=== PATIENT | male | born 1985 | race Caucasian/White ===

== ENCOUNTER 2024-03-09 21:32 | Observation (INO) | payer OTHER ==
--- OUTSIDE RECORDS SUMMARY | 2024-03-09 21:34 | XMS REPORT | Continuity of Care Document ---
Author Name Unknown Address [address] [facility]. [address] [place] [address] [facility] thconnect Address [address] [facility] [address] [place] [address] Care Team Providers Care Customer Program Manager Name Role Phone Pcp, Patient Does Not Have A Primary Care Physic tiffanie VINCE HAUSER Attending Clinician Unavailabl e Lab, [facility] Pob I Attending Clinician Unavailab le Pcp, Patient Does Not Have A Attending Clinician Amy Sandhu RN Attending Clinician Unavailable Diaz Antonio Attending Clinician [phone] Doctor Unassigned, [place] Attending Clinician U navailable DIAZ HOPE Attending Clinician Unavailable Ruth Nuno MD Attending Clinician [phone] RUTH NUNO Attending Clinician Unavailable Payers Payer Name Policy Type Policy Number Effective Date Expirati on Date Source [facility] [id number] 2018 00:00:00 Problems Condition Name Condition Details Condition Category Status Onset Date Resolution Date Last Treatment Date Treating Clinician Comments Source COVID-19 COVID-19 Disease Active 09-18 00:00: 00 [facility] Allergies, Adverse Reactions, Alerts Allergy Name Allergy Type Status Severity Reaction(s) Onset Date Inactive Date Treating Clinician Comments Source NO KNOWN ALLERGIE S Drug Class Active [facility] Social History Social Habit Start Date Stop Date Quantity Comments Source Sexual orientation U [facility] Exposure to SARS-CoV-2 (event) 2019-08-20 00:00:00 2019-09-19 14:18:00 Not sure [facility] Sex Assigned At 1985 00:00:00 1985 00:00:00 [facility] Smoking Status Start Date Stop Date Source Tobacco smoking consumption unknown [facility] Encounters Start Date/Time End Date/Time Encounter Type Admission Type Attending [facility] Facility Care Department Encounter ID Source 2019-09-22 16:20:00 2019-09-22 16:20:00 Outpatient VINCE MACHADO [facility] [id number] [facility] 2019-09-22 00:00:00 2019-09-22 00:00:00 Nurse Triage Lab, [facility] [id number] 350.1.13.10 [id number] [id number] 2019-09-22 00:00:00 2019-09-22 00:00:00 Nurse Triage Lab, [facility] P[facility] I [facility] 1.2.840.114 350.1.13.10 4.2.7.2.686 [id number] [facility] 2019-09-20 00:00:00 2019-09-20 00:00:00 Telephone Pcp, Patient Does Not Have A [facility] [id number] 350.1.13.10 [id number] [id number] 2019-09-20 00:00:00 2019-09-20 00:00:00 Letter (Out) Amy Sandhu [facility] 1.2.840.114 350.1.13.10 4.2.7.2.686 [id number] 2019-09-20 00:00:00 2019-09-20 00:00:00 Telephone Pcp, Patient Does Not Have A [facility] 1.2.840.114 350.1.13.10 4.2.7.2.686 [id number] [facility] 2019-09-20 00:00:00 2019-09-20 00:00:00 Letter (Out) Amy Sandhu [facility] [id number] 350.1.13.10 4.2.7.2.686 [id number] [facility] 2019-09-19 14:06:34 2019-09-19 14:26:34 Laboratory Only Lab, [facility] Pob [facility] 1.840.114 350.1.13.10 4.2.7.2.686 [id number] 2019-09-19 14:06:34 2019-09-19 14:26:34 Laboratory Only Lab, [facility] 1.840.114 350.1.13.10 4.2.7.2.686 [id number] [facility] 2019-09-19 14:20:00 2019-09-19 14:20:00 Outpatient R [facility] [id number] [facility] 2019-09-15 00:00:00 2019-09-15 00:00:00 Patient Secure Msg Doctor Unassigned, [place] [facility] 1.840.114 350.1.13.10 4.2.7.2.686 [id number] [facility] 2019-09-14 11:37:06 2019-09-14 11:57:06 Laboratory Only Lab, [facility] Pob [facility] 1.840.114 350.1.13.10 4.2.7.2.686 [id number] 2019-09-14 11:37:06 2019-09-14 11:57:06 Laboratory Only Lab, [facility] 1.840.114 350.1.13.10 4.2.7.2.686 [id number] [facility] 2019-09-14 11:40:00 2019-09-14 11:40:00 Outpatient DIAZ FRANKEL [facility] [id number] [facility] 2019-08-31 00:00:00 2019-08-31 00:00:00 Telephone Ruth Nuno [facility] [id number] 350.1.13.10 4.2.7.2.686 [id number] 2019-08-31 00:00:00 2019-08-31 00:00:00 Telephone Ruth Nuno [facility] 1.2.840.114 350.1.13.10 4.2.7.2.686 [id number] [facility] 2019-08-30 00:00:00 2019-08-30 00:00:00 Patient Secure Msg Doctor Unassigned, [place] [facility] 1.2.840.114 350.1.13.10 4.2.7.2.686 [id number] [facility] 2019-08-28 09:45:00 2019-08-28 09:45:00 Outpatient RUTH MOREAU [facility] [id number] [facility]
[2024-03-09] MEDS ORDERED: LORazepam 2 MG/ML VIAL ONE (22:16)
[2024-03-09] MEDS ORDERED: ASPIRIN 81 MG CHEWABLE TABLET ONE (22:17)
--- NOTE | 2024-03-09 22:37 | RAD REPORT ---
EXAMINATION: ONE VIEW CHEST XR CLINICAL INDICATION: Male, 38 years old.,CHEST PAIN TECHNIQUE: Frontal chest projection is submitted. Examination is limited by patient positioning and t echnique. COMPARISON: 12/15/2023 FINDINGS: The lungs are grossly clear although suboptimal inspiratory effort somewhat limits evaluation. No pn eumothorax or sizable effusion. The heart is normal in size. Mediastinal contours are unremarkable. IMPRESSION: No acute intrathoracic abnormalities.
[2024-03-09 22:55] LABS: Absolute Basophils 0.1 K/uL (0-0.5); Absolute Eosinophils 0.1 K/uL (0-0.5); Absolute Lymphocytes (CBC) 1.8 K/uL (0.7-4.9); Absolute Monocytes 1.1 K/uL (0.1-1.3); Absolute Neutrophil 8.8 K/uL (1.8-8.0); Basophils % 0.5 % (0-1.3); Eosinophils % 0.8 % (0-4.4); Hematocrit 40.5 % (39.6-49.0); Hemoglobin 13.8 g/dL (13.6-17.9); MCH 30.2 pg (27.0-35.0); MCV 88.8 fL (80-100); MPV 7.4 fL (7.6-11.3); Monocytes % 9.2 % (3.3-12.3); Neutrophils % 74.5 % (41.7-73.7); Platelets 480 thou/uL (152-406); RBC Red Blood Cell Count 4.57 M/uL (4.33-5.43); Red Cell Distribution Width 12.7 % (12.1-15.2)
[2024-03-09 23:28] LABS: PT Prothrombin Time 11.5 SECONDS (9.4-12.5); Protime INR 1.1
[2024-03-09 23:40] LABS: Anion Gap 11.8 mEq/L (5.0-15.0); BUN Blood Urea Nitrogen 16 mg/dL (7-18); Bicarbonate 21 mEq/L (21-32); Glomerular Filtration Rate 99 ml/min (=/>90); Glucose Level 171 mg/dL (74-106); Magnesium 1.8 mg/dL (1.6-2.4); Potassium 3.8 mEq/L (3.5-5.1); Sodium Level 134 mEq/L (136-145); Troponin High Sensitivity 6.4 pg/mL (<58.9)
[2024-03-09 23:53] LABS: NT PRO-BNP < 5 pg/mL (<125)
[2024-03-10 00:37] LABS: Specific Gravity 1.012 (1.005-1.030); Sqamous Epithelial None Seen /HPF (None Seen); Urine Bacteria None Seen /HPF (<20); Urine Bilirubin NEGATIVE (Negative); Urine Blood Trace (Negative); Urine Clarity Clear (Clear); Urine Color Colorless (Yellow); Urine Culture Reflex Order NOT NEEDED; Urine Glucose NEGATIVE (Negative); Urine Ketones NEGATIVE (Negative); Urine Microscopic Reflex YN ORDER UMIC; Urine Mucus Slight /HPF (None Seen); Urine Nitrite NEGATIVE (Negative); Urine Protein NEGATIVE (Negative); Urine RBC <5 /HPF (None Seen); Urine Urobilinogen Normal (Normal); Urine WBC <5 /HPF (<5)
--- NOTE | 2024-03-10 01:17 | ER ---
Nurse's Notes [facility] Name: David Howard Age: 38 yrs Sex: Male : 1985 Arrival Date: 03/09/2024 Time: 21:32 Bed 17 Private MD: Diagnosis: Chest pain, unspecified;Diabetes mellitus due to underlying condition with hyperglycemia Presentation: 03/09 21:49 Chief complaint: Patient states: c/o CP x1 hour, states just a few minutes ago started al5 to having tingling in the L arm and L breast. states he took some benadryl to help sleep due to having an itchy throat. Coronavirus screen: At this time, the client does not indicate any symptoms associated with coronavirus-19. Ebola Screen: No symptoms or risks identified at this time. Initial Sepsis Screen: Does the patient meet any 2 criteria? No. Patient's initial sepsis screen is negative. Does the patient have a suspected source of infection? No. Patient's initial sepsis screen is negative. Risk Assessment: Do you want to hurt yourself or someone else? Patient reports no desire to harm self or others. Onset of symptoms was March 09, 2024. 21:49 Method Of Arrival: Ambulatory al5 21:49 Acuity: VIOLETTE 2 al5 Triage Assessment: 21:53 General: Appears in no apparent distress. Behavior is calm, cooperative. Pain: al5 Complains of pain in left breast Pain currently is 2 out of 10 on a pain scale. EENT: No signs and/or symptoms were reported regarding the EENT system. Neuro: Level of Consciousness is awake, alert, obeys commands, Oriented to person, place, time, situation. Cardiovascular: Reports chest pain, Patient's skin is warm and dry. Respiratory: Airway is patent Respiratory effort is even, unlabored, Respiratory pattern is regular, symmetrical. GI: No signs and/or symptoms were reported involving the gastrointestinal system. Abdomen is round non-distended, obese. : No signs and/or symptoms were reported regarding the genitourinary system. Derm: Skin is intact, is healthy with good turgor, Skin is pink, warm \T\ dry. normal. Musculoskeletal: No signs and/or symptoms reported regarding the musculoskeletal system. Historical: - Allergies: 21:51 No Known Allergies; al5 - PMHx: 21:51 Hypertensive disorder; Hypercholesterolemia; Diabetes mellitus; Anxiety; al5 - PSHx: 21:51 None; al5 - Immunization history:: Adult Immunizations up to date. - Infectious Disease History:: Denies. - Social history:: Smoking status: Patient denies any tobacco usage or history of. Screenin:30 [facility] ED Fall Risk Assessment (Adult) History of falling in the last 3 months, mt4 including since admission No falls in past 3 months (0 pts) Confusion or Disorientation No (0 pts) Intoxicated or Sedated No (0 pts) Impaired Gait No (0 pts) Mobility Assist Device Used No (0 pt) Altered Elimination Yes (1 pt) Score/Fall Risk Level 0 - 2 = Low Risk. Abuse screen: Denies injuries from another. Nutritional screening: No deficits noted. Tuberculosis screening: No symptoms or risk factors identified. Exposure risk/Travel Screening: None identified. Assessment: 23:30 General: Appears in no apparent distress. comfortable, obese, well groomed, Behavior is mt4 calm, cooperative, appropriate for age. 23:30 Pain: Complains of pain in chest Pain began 1 day ago. Is continuous. Neuro: Level of mt4 Consciousness is awake, alert, obeys commands, Oriented to person, place, time, situation, Appropriate for age Leather Toggler are equal bilaterally Moves all extremities. Gait is steady, Speech is normal, Facial symmetry appears normal. Cardiovascular: Capillary refill < 3 seconds Pulses. Respiratory: Airway is patent Respiratory effort is even, unlabored, Respiratory pattern is regular, symmetrical. GI: Abdomen is round non-distended, obese. : Denies burning with urination. Musculoskeletal: Capillary refill < 3 seconds, Range of motion: intact in all extremities. 03/10 00:14 Pain: Pain does not radiate. Pain began 1 day ago. mt4 00:19 Reassessment: Patient is alert, oriented x 3, equal unlabored respirations, skin mt4 warm/dry/pink. Patient states feeling better. Vital Signs: 03/09 21:49 BP 140 / 96; Pulse 87; Resp 18; Temp 98.1; Pulse Ox 100% on R/A; Weight 158.76 kg; al5 Height 5 ft. 11 in. ; Pain 2/10; 22:30 BP 122 / 77; Pulse 78; Resp 18; Pulse Ox 97% on R/A; mt4 01/24 00:00 BP 109 / 68; Pulse 71; Resp 16; Pulse Ox 96% on R/A; mt4 00:47 BP 113 / 60 LA (man/lg); Pulse 66; Resp 16; Pulse Ox 97% on R/A; mt4 00:47 BP 119 / 63 RA; Pulse 70 RA; mt4 02:00 BP 126 / 73; Pulse 72; Resp 16; Pulse Ox 94% on R/A; mt4 03/09 21:49 Body Mass Index 48.82 (158.76 kg, 180.34 cm) al5 03/09 21:49 Pain Scale: Adult al5 Bellona Coma Score: 03/09 23:30 Eye Response: spontaneous(4). Motor Response: obeys commands(6). Verbal Response: mt4 oriented(5). Total: 15. ED Course: 21:32 Patient arrived in ED. jj6 21:33 Gonsalo Ewing PA is PHCP. cp 21:34 Rajesh Heller MD is Attending Physician. cp 21:51 Triage completed. al5 21:54 Arm band placed on right wrist. Patient placed in waiting room, in view of staff al5 members, on pulse oximetry. EKG completed in triage. Results shown to MD. 22:13 Alanis Menendez, RN is Primary Nurse. mt4 22:28 XRAY Chest (1 view) In Process Unspecified. EDMS 23:30 Patient has correct armband on for positive identification. Bed in low position. Call mt4 light in reach. Side rails up X 1. Adult w/ patient. Provided Education on: labs and meds . Client placed on continuous cardiac and pulse oximetry monitoring. NIBP monitoring applied. potline monitor on. Pulse ox on. Door closed. Lights dimmed. Warm blanket given. Pillow given. Verbal reassurance given. Assisted with urinal. 23:30 No provider procedures requiring assistance completed. Inserted saline lock: 20 gauge mt4 in right antecubital area, using aseptic technique. Blood collected. Flushed with 10 mL NS. Patient maintains SpO2 saturation greater than 95% on room air. 03/10 01:15 Aleksander Medina MD is Hospitalizing Provider. cp Administered Medications: 03/09 22:30 Drug: Ativan IVP 1 mg IVP once Route: IVP; Site: right antecubital; mt4 03/10 00:49 Follow up: Response: No adverse reaction mt4 03/09 23:09 Drug: Aspirin PO Chewable Tablet 324 mg PO once; 81 mg tablets x 4 Route: PO; mt4 03/10 00:49 Follow up: Response: No adverse reaction mt4 Medication: 03/09 23:30 VIS not applicable for this client. mt4 Outcome: 03/10 01:16 Decision to Hospitalize by Provider. cp 09:39 Patient left the ED. hb Signatures: Dispatcher [employer] EDMS Gonsalo Ewing PA PA cp Esperanza Longoria RN RN Ifeoma Peñaloza jj6 Alanis Menendez RN RN mt4 Phyllis Kuo RN RN al5 Corrections: (The following items were deleted from the chart) 03/09 21:53 21:49 Chief complaint: Patient states: c/o CP x1 hour, states just a few minutes ago al5 started to having tingling in the L arm and L breast al5
--- NOTE | 2024-03-10 01:17 | EDPHYS ---
Physician Documentation [facility] Name: David Howard Age: 38 yrs Sex: Male : 1985 Arrival Date: 03/09/2024 Time: 21:32 Bed 17 Private MD: ED Physician Rajesh Heller HPI: 03/09 21:55 This 38 yrs old Male presents to ER via Ambulatory with complaints of Chest Pain, High cp Blood Pressure. 21:55 The patient or guardian reports chest pain that is located primarily in the anterior cp chest wall, left. Associated signs and symptoms: Pertinent positives: tingling of left arm and hands, Pertinent negatives: abdominal pain, diaphoresis, lower extremity pain, lower extremity swelling, near syncope, shortness of breath, syncope, vomiting. The chest pain is described as a pressure. Duration: The patient or guardian reports a single episode, that is still ongoing. Historical: - Allergies: 21:51 No Known Allergies; al5 - PMHx: 21:51 Hypertensive disorder; Hypercholesterolemia; Diabetes mellitus; Anxiety; al5 - PSHx: 21:51 None; al5 - Immunization history:: Adult Immunizations up to date. - Infectious Disease History:: Denies. - Social history:: Smoking status: Patient denies any tobacco usage or history of. ROS: 22:00 Constitutional: Negative for body aches, chills, fever, poor PO intake, cp 22:00 Cardiovascular: Positive for chest pain, Negative for edema, palpitations, cp 22:00 Respiratory: Negative for cough, shortness of breath, wheezing, 22:00 Abdomen/GI: Negative for abdominal pain, vomiting, diarrhea, constipation, 22:00 Eyes: Negative for injury, pain, redness, and discharge, cp 22:00 ENT: Negative for drainage from ear(s), ear pain, sore throat, difficulty swallowing, difficulty handling secretions, 22:00 Neck: Negative for pain with movement, pain at rest, stiffness, cp 22:00 Neuro: Negative for altered mental status, weakness, 22:00 All other systems are negative, Exam: 21:56 ECG was reviewed by the Attending Physician. cp 22:05 Constitutional: The patient appears in no acute distress, alert, awake, cp non-diaphoretic, non-toxic, well developed, well nourished, anxious, obese, 22:05 Head/Face: Normocephalic, atraumatic. cp 22:05 Eyes: Periorbital structures: appear normal, Conjunctiva: normal, no exudate, no injection, Sclera: no appreciated abnormality, Lids and lashes: appear normal, bilaterally, 22:05 ENT: External ear(s): are unremarkable, Nose: is normal, Mouth: Lips: moist, Oral mucosa: moist, Posterior pharynx: Airway: no evidence of obstruction, patent, 22:05 Neck: ROM/movement: is normal, is supple, without pain, no range of motions limitations, 22:05 Chest/axilla: Inspection: normal, Palpation: is normal, no crepitus, no tenderness, 22:05 Cardiovascular: Rate: normal, Rhythm: regular, Edema: is not appreciated, JVD: is not appreciated, 22:05 Respiratory: the patient does not display signs of respiratory distress, Respirations: normal, no use of accessory muscles, no retractions, labored breathing, is not present, Breath sounds: are clear throughout, no decreased breath sounds, no stridor, no wheezing, 22:05 Abdomen/GI: Inspection: obese Palpation: abdomen is soft and non-tender, in all quadrants, 22:05 Back: pain, is absent, ROM is normal, 22:05 Neuro: Orientation: to person, place \T\ time. Mentation: is normal, Cerebellar function: cp is grossly normal, Motor: moves all fours, strength is normal, Sensation: tingling, that is mild, of the right hand, left hand and left arm, Vital Signs: 21:49 BP 140 / 96; Pulse 87; Resp 18; Temp 98.1; Pulse Ox 100% on R/A; Weight 158.76 kg; al5 Height 5 ft. 11 in. ; Pain 2/10; 22:30 BP 122 / 77; Pulse 78; Resp 18; Pulse Ox 97% on R/A; mt4 03/10 00:00 BP 109 / 68; Pulse 71; Resp 16; Pulse Ox 96% on R/A; mt4 00:47 BP 113 / 60 LA (man/lg); Pulse 66; Resp 16; Pulse Ox 97% on R/A; mt4 00:47 BP 119 / 63 RA; Pulse 70 RA; mt4 02:00 BP 126 / 73; Pulse 72; Resp 16; Pulse Ox 94% on R/A; mt4 03/09 21:49 Body Mass Index 48.82 (158.76 kg, 180.34 cm) al5 03/09 21:49 Pain Scale: Adult al5 Roc Coma Score: 03/09 23:30 Eye Response: spontaneous(4). Motor Response: obeys commands(6). Verbal Response: mt4 oriented(5). Total: 15. MDM: 22:00 Differential diagnosis: abnormal EKG, acute myocardial infarction, anxiety, pleurisy, cp pneumonia, pneumothorax, pulmonary embolus, stable angina, thoracic aortic disection, unstable angina. 03/10 00:39 HEART Score: History: Moderately Suspicious (1), ECG: Normal (0), Age: < or = 45 years (0), Risk Factors: > or = 3 Risk factors for atherosclerotic disease (2), [Hypercholesterolemia] [Hypertension] [DM] [Obesity] Troponin: < or = 1 x Normal Limit (0). 01:16 Medical Screening Exam initiated 01:16 Data reviewed: vital signs, nurses notes, lab test result(s), EKG, radiologic studies, plain films, and as a result, I will admit patient. 01:16 I considered the following discharge prescriptions or medication management in the emergency department Medications were administered in the Emergency Department. See MAR. Independent interpretation of the following test(s) in the Emergency Department EKG: See my EKG interpretation above. Test considered but Not performed: CT: chest. Care significantly affected by the following chronic conditions: Diabetes, Hypertension, Obesity. Counseling: I had a detailed discussion with the patient and/or guardian regarding the historical points, exam findings, and any diagnostic results supporting the discharge/admit diagnosis, lab results, radiology results. Response to treatment: the patient's symptoms have markedly improved after treatment. 03/09 21:49 Order name: Basic Metabolic Panel; Complete Time: 00:35 03/10 00:35 Interpretation: Normal except: NA 134; GLUC 171. 03/09 21:49 Order name: CBC with Diff; Complete Time: 23:35 03/09 23:35 Interpretation: Normal except: WBC 11.90; PLT 480; MPV 7.4; YEHUDA% 74.5; LYM% 15.0; NEUT cp A 8.8. 03/09 21:49 Order name: Magnesium; Complete Time: 00:35 cp 03/09 21:49 Order name: NT PRO-BNP; Complete Time: 00:35 cp 03/10 00:35 Interpretation: Reviewed. cp 03/09 21:49 Order name: PT-INR; Complete Time: 23:35 cp 03/09 21:49 Order name: Troponin HS; Complete Time: 00:35 cp 03/09 22:03 Order name: UDS cp 03/09 23:26 Order name: Urinalysis w/ reflexes; Complete Time: 00:38 cp 03/10 00:38 Interpretation: Normal except: UBLD Trace. cp 03/10 02:47 Order name: Urinalysis w/ reflexes EDMS 03/10 02:47 Order name: CBC with Automated Diff EDMS 03/10 02:47 Order name: CBC with Automated Diff EDMS 03/10 02:47 Order name: Comprehensive Metabolic Panel EDMS 03/10 02:47 Order name: Comprehensive Metabolic Panel EDMS 03/10 02:47 Order name: Troponin High Sensitivity EDMS 03/10 02:47 Order name: Troponin High Sensitivity EDMS 03/10 02:47 Order name: Troponin High Sensitivity EDMS 03/10 02:47 Order name: Troponin High Sensitivity EDMS 03/10 04:03 Order name: Glucose, Ancillary Testing EDMS 03/09 21:49 Order name: XRAY Chest (1 view); Complete Time: 23:35 cp 03/10 06:56 Order name: CT EDMS 03/09 21:49 Order name: EKG; Complete Time: 21:50 cp 03/09 21:49 Order name: Cardiac monitoring; Complete Time: 00:49 cp 03/09 21:49 Order name: EKG - Nurse/Tech; Complete Time: 21:59 cp 03/09 21:49 Order name: IV Saline Lock; Complete Time: 00:49 cp 03/09 21:49 Order name: Labs collected and sent; Complete Time: 00:49 cp 03/09 21:49 Order name: O2 Per Protocol; Complete Time: 00:49 cp 03/09 21:49 Order name: O2 Sat Monitoring; Complete Time: 00:50 cp 03/09 23:36 Order name: Blood Pressure Recheck: bilateral upper extremity; Complete Time: 00:49 cp EC/23 21:56 Rate is 88 beats/min. Rhythm is regular. AL interval is normal. QRS interval is normal. cp QT interval is normal. T waves are Inverted in leads III, aVR. Interpreted by me. Reviewed by me. Administered Medications: 22:30 Drug: Ativan IVP 1 mg IVP once Route: IVP; Site: right antecubital; mt4 03/10 00:49 Follow up: Response: No adverse reaction mt4 03/09 23:09 Drug: Aspirin PO Chewable Tablet 324 mg PO once; 81 mg tablets x 4 Route: PO; mt4 03/10 00:49 Follow up: Response: No adverse reaction mt4 Disposition Summary: 03/10/24 01:16 Hospitalization Ordered Notes: Hospitalization Status: Observation cp Provider: Aleksander Medina cp Condition: Stable cp Problem: new cp Symptoms: have improved cp Bed/Room Type: Standard cp Location: Telemetry/MedSurg (observation)(03/10/24 08:01) eb Room Assignment: [facility](03/10/24 08:01) Diagnosis - Chest pain, unspecified cp - Diabetes mellitus due to underlying condition with hyperglycemia cp Forms: - Medication Reconciliation Form cp - SBAR form cp - Leadership Thank You Letter cp Addendum: 03/12/2024 07:08 Co-signature as Attending Physician, Rajesh Heller MD I reviewed the patient's care r n provided by the Advanced Practice Provider and agree with the diagnosis and treatment plan. Signatures: Dispatcher [employer] EDRajesh Daniels MD MD rn Page, Corey, PA PA cp Amaya Hendrickson Vanessa RN RN vc1 Alanis Menendez RN RN mt4 Phyllis Kuo RN RN al5 Corrections: (The following items were deleted from the chart) 03/10 02:09 01:16 Telemetry/MedSurg (observation) cp vc1 02:09 01:16 cp vc1 08:01 02:09 [facility] ER HOLD vc1 eb 08:01 02:09 ERHOLD- vc1 eb
[2024-03-10 01:20] LABS: Barbiturates NEGATIVE (NEGATIVE); Benzodiazepines NEGATIVE (NEGATIVE); Cocaine NEGATIVE (NEGATIVE); METHAMPHETAM NEGATIVE (NEGATIVE); Methadone NEGATIVE (NEGATIVE); Opiates NEGATIVE (NEGATIVE); Phencyclidine NEGATIVE (NEGATIVE); THC Cannibis NEGATIVE (NEGATIVE)
[2024-03-10] MEDS ORDERED: ACETAMINOPHEN 325 MG TABLET PO PRN (02:42)
[2024-03-10] MEDS ORDERED: ONDANSETRON 4 MG/2 ML VIAL IV PRN (02:42)
--- NOTE | 2024-03-10 02:42 | P.HP ---
Certification for Inpatient Patient admitted to: Observation With expected LOS: <2 Midnights Practitioner: I am a practitioner with admitting privileges, knowledge of patient current condition, hospital course, and medical plan of care. Services: Services provided to patient in accordance with Admission requirements found in Title 42 Section 412.3 of the Code of Federal Regulations Patient History Date of Service: 03/10/24 Reason for admission: Chest Pain History of Present Illness: 38 yrs old Male with a past medical history of hypertension, hyperlipidemia, diabetes, anxiety who was brought to ER with chest pain and also numbness of the left side of the upper extremity. Pain is located in anterior chest wall radiating to the left side associated with tingling of the left arm and hands. Denies any headache. No nausea vomiting or diarrhea. No fever or chills. Denies any cough. Patient also complains of pressure-like feeling in the chest. Patient was assessed in the ER was admitted for further management of chest pain rule out ACS and to rule out CVA Allergies No Known Allergies Allergy (Unverified 03/10/24 02:20) Home medications list reviewed: Yes - Past Medical/Surgical History Past Medical History: Reviewed- Non-Contributory -: hypertension, hyperlipidemia, diabetes, anxiety Past Surgical History: Reviewed- Non-Contributory - Social History Smoking Status: Never smoker Review of Systems 10-point ROS is otherwise unremarkable Physical Examination - Vital Signs Temperature: 98.2 F Blood Pressure: 132/82 Pulse: 68 Respirations: 18 Pulse Ox (%): 94 - Physical Exam General: Alert, In no apparent distress, Oriented x3, Obese HEENT: Atraumatic, Normocephalic Neck: Supple Respiratory: Clear to auscultation bilaterally, Normal air movement Cardiovascular: Regular rate/rhythm, Normal S1 S2 Capillary refill: <2 Seconds Gastrointestinal: Soft and benign, W/out hepatosplenomegaly Musculoskeletal: No clubbing, No swelling Integumentary: No rashes, No breakdown Neurological: Normal gait, Normal strength at 5/5 x4 extr, Cranial nerves 3-12 intact, Normal reflexes 2+ Lymphatics: No axilla or inguinal lymphadenopathy - Studies Laboratory Data (last 24 hrs) 03/09/24 03/09/24 03/09/24 22:31 22:31 22:31 WBC 11.90 H Hgb 13.8 Hct 40.5 Plt Count 480 H PT 11.5 INR 1.10 Sodium 134 L Potassium 3.8 BUN 16 Creatinine 1.00 Glucose 171 H Magnesium 1.8 Assessment and Plan - Plan Chest pain to rule out ACS Will trend cardiac enzymes Will monitor telemetry Started on aspirin and statin EKG did not show any acute changes suggestive of ischemia Patient denies any chest pain Will get an echocardiogram Cardiology consult Hypertension Antihypertensives titrated Continue home medications and titrate as needed Hyperlipidemia Continue statin Diabetes Insulin sliding scale Accu-Chek before every meal and at bedtime Numbness of the left side Will get a CT of the head Continue aspirin and statin GI/DVT prophylaxis Advanced directive full code Discharge Plan: Home Plan to discharge in: 48 Hours - Advance Directives Does patient have a Living Will: No Does patient have a Durable POA for Healthcare: No - Code Status/Comfort Care Code Status: Full Code Time Spent Managing Pts Care (In Minutes): 48
[2024-03-10 03:42] VITALS: BMI 48.8
[2024-03-10 04:01] VITALS: TEMP 98.2
[2024-03-10] MEDS ORDERED: GLUCAGON 1 MG/VIAL IM PRN (04:58)
[2024-03-10] MEDS ORDERED: D10W 125 ML IV PRN (04:58)
--- NOTE | 2024-03-10 06:56 | RAD REPORT ---
EXAMINATION: CT HEAD WITHOUT CONTRAST CLINICAL INDICATION: Male, 38 years old.Numbness TECHNIQUE: Axial CT images from the skull base to the vertex without intravenous contrast. Coronal an d sagittal reformatted images were created from the data set. One or more of the following dose reduction techniques were used: Automated exposure control, adjustment of the mA and/or kV according to patient size, and/or iterative reconstruction. Unless otherwise specified, incidental findings do not require dedicated imaging follow-up. [id number]. COMPARISON: No prior exam. FINDINGS: INTRACRANIAL: No acute intracranial hemorrhage. No hydrocephalus. No mass effect or midline shift. No significant white matter disease. VASCULATURE: No visualized abnormalities in the arteries or dural venous sinuses. SCALP/SKULL: No significant soft tissue or osseous abnormalities. SINUSES: The visualized paranasal sinuses and mastoid air cells are predominantly clear. IMPRESSION: No acute intracranial abnormality.
[2024-03-10] MEDS: INSULIN REGULAR (HUMAN) 100 UNIT/ML SQ SCH (07:30)
[2024-03-10] MEDS ORDERED: HEPARIN 5000 UNIT/ML 1 ML VIAL ONE ×2 (08:23→13:32)
[2024-03-10] MEDS ORDERED: ASPIRIN EC 81 MG TAB PO ONE (08:23)
[2024-03-10] MEDS: ASPIRIN EC 81 MG TAB PO SCH (08:41)
[2024-03-10] MEDS: HEPARIN 5000 UNIT/ML 1 ML VIAL SQ SCH (08:41)
[2024-03-10] MEDS ORDERED: VERAPAMIL HCL 10 MG/4 ML VIAL IV ONE (13:31)
[2024-03-10] MEDS ORDERED: HEPARIN 10,000 UNIT/10 ML VIAL IV ONE (13:31)
[2024-03-10] MEDS ORDERED: HEPA 1000U/500MLS 2,000 UNIT/1,000 ML BAG IV ONE (13:31)
[2024-03-10] MEDS ORDERED: NITROGLYCERIN/D5W 50 MG/250 ML BTL IV ONE (13:31)
[2024-03-10] MEDS ORDERED: LIDOCAINE 1% 20 ML MDV ONE (13:31)
[2024-03-10] MEDS ORDERED: CLOPIDOGREL 75 MG TABLET ONE (13:32)
[2024-03-10] MEDS ORDERED: MIDAZOLAM HCL 2 MG/2 ML INJ ONE (13:32)
[2024-03-10] MEDS ORDERED: ATROPINE SULF 1 MG/10 ML SYR IV ONE (13:32)
[2024-03-10] MEDS ORDERED: TICAGRELOR 90 MG TABLET PO ONE (13:33)
[2024-03-10] MEDS ORDERED: FENTANYL CITR 100 MCG/2 ML ONE (13:33)
[2024-03-10] MEDS ORDERED: ASPIRIN 325 MG TAB ONE (13:33)
[2024-03-10] MEDS ORDERED: NA CHLORIDE 0.9% 500 ML ONE (14:20)
--- NOTE | 2024-03-10 15:07 | EKG ---
Test Date: 2024-03-09 Test Time: 21:49:23 Network Architect Manager: DACIA MEASUREMENT RESULTS: Intervals: Rate: 88 W[place]: 140 QRSD: 98 QT: 358 QTc: 433 [place]: P: 3 W[place]: 140 QRS: -10 T: 0 INTERPRETIVE STATEMENTS: Normal sinus rhythm Minimal voltage criteria for LVH, may be normal variant Borderline ECG Compared to ECG 11/24/2009 09:31:36 Left ventricular hypertrophy now present Electronically Signed On 03-10-24 15:05:43 ORGANIC CHEMIST by Shlmoo Mcgrath
[2024-03-10 16:45] VITALS: O2SAT 98
[2024-03-10 17:17] VITALS: BP 120/65
--- NOTE | 2024-03-10 18:28 | CON ---
Date of Consultation: 03/10/2024 Reason For Consultation: Chest pain. History Of Present Illness: A 38-year-old male, morbidly obese with history of hypertension, dyslipi demia, and diabetes, presented to the emergency room with chest pressure, radiates to the jaw, should er, and left upper extremity, lasted 2 hours and started to get better. He has been having chest pre ssure with activities lately and noticed inability to finish the activities that he used to do due to significant shortness of breath and the chest pain is pressure like with atypical radiation. He has been having it on and off since he got admitted. At the present time, he is chest pain free. Past Medical History: Dyslipidemia, hypertension, diabetes, and obesity. Medications: Refer reconciliation sheet for detailed list. Allergies: NO KNOWN DRUG ALLERGIES. Family History: No premature coronary artery disease or cancer. Social History: Does not smoke or drink. Does not use any drugs. Review of Systems: All systems reviewed, they were negative except as mentioned in HPI. Physical Examination: Vital Signs: Reviewed. Head and Neck: Pupils are equal, reactive to light. Intact eye movements. No JVD. No cervical lym phadenopathy. Neck is supple. Thyroid is not enlarged. Lungs: Clear to auscultation bilaterally. No rhonchi, wheezing, or crackles. No accessory muscle u se. Heart: Regular rate and rhythm. No extra sounds. Abdomen: Soft, nontender. Bowel sounds positive. No organomegaly. No masses or hernia. No rigidi ty or rebound. Extremities: No edema, clubbing, cyanosis. Intact pulses. Skin: No rash. No nodule. Neurologic: Alert, awake, oriented x3. No acute focal deficits appreciated. Investigations: BUN 16, creatinine 1. Cardiac enzymes x3 are negative. Hemoglobin 13.8. Assessment/recommendation: 1.Chest pain, very typical with multiple risk factors including obesity, hypertension, dyslipidemia, diabetes, and significant family history of coronary artery disease. Keep n.p.o., plan for coronary angiogram today, and continue baby aspirin for now. 2.Dyslipidemia. Continue Lipitor 40 mg q.h.s. 3.Diabetes. Sugars are borderline. Check 3 times a day. Cover with regular insulin per sliding sc nina. 4.Hypertension. Blood pressure is very well controlled. SR/MODL Voice ID: [id number] Report ID: [id number]
--- NOTE | 2024-03-10 19:12 | P.DS ---
Admission Date: 03/10/24 Discharge Date: 03/10/24 Disposition: ROUTINE DISCHARGE Discharge Condition: FAIR Reason for Admission: Chest Pain Brief History of Present Illness: 38 yrs old Male with a past medical history of hypertension, hyperlipidemia, diabetes, anxiety who was brought to ER with chest pain and also numbness of the left side of the upper extremity. Pain is located in anterior chest wall radiating to the left side associated with tingling of the left arm and hands. Denies any headache. No nausea vomiting or diarrhea. No fever or chills. Denies any cough. Patient also complains of pressure-like feeling in the chest. Patient was assessed in the ER was admitted for further management of chest pain rule out ACS and to rule out CVA Hospital Course: Diagnosis Chest pain Left arm numbness Hypertension Diabetes mellitus type 2 Hyperlipidemia Patient was hospitalized, troponin trended which were negative. Patient was evaluated by cardiology Dr. Mcgrath and given his significant risk factors cardiac catheterization was done and patient found to have normal coronary arteries. ACS ruled out. Patient placed on aspirin and statin given his risk factors. Patient symptoms also resolved during the hospital stay. Regarding numbness of the left side, patient's symptoms resolved. He attributes the numbness to his position of sleep -laying on on his left arm. Head CT negative Patient placed on aspirin and statins. Vital Signs/Physical Exam: Temp Pulse Resp BP Pulse Ox 98.2 F 80 16 120/65 96 03/10/24 12:00 03/10/24 16:55 03/10/24 16:55 03/10/24 16:55 03/10/24 12:00 General: Alert, Oriented x3 HEENT: Atraumatic, Mucous membr. moist/pink Neck: Supple, JVD not distended Respiratory: Clear to auscultation bilaterally, Normal air movement Cardiovascular: No edema, Regular rate/rhythm, Normal S1 S2 Gastrointestinal: Normal bowel sounds, Soft and benign, Non-distended, No tenderness Musculoskeletal: No swelling, No tenderness Integumentary: No rashes, No cyanosis Neurological: Normal gait, Normal speech, Normal strength at 5/5 x4 extr, Cranial nerves 3-12 intact Laboratory Data at Discharge: WBC 11.90 thou/uL (4.3-10.9) H 03/09/24 22:31 Hgb 13.8 g/dL (13.6-17.9) 03/09/24 22:31 Hct 40.5 % (39.6-49.0) 03/09/24 22:31 Plt Count 480 thou/uL (152-406) H 03/09/24 22:31 PT 11.5 SECONDS (9.4-12.5) 03/09/24 22:31 INR 1.10 03/09/24 22:31 Sodium 134 mEq/L (136-145) L 03/09/24 22:31 Potassium 3.8 mEq/L (3.5-5.1) 03/09/24 22:31 BUN 16 mg/dL (7-18) 03/09/24 22: Creatinine 1.00 mg/dL (0.70-1.30) 03/09/24 22: Glucose 171 mg/dL (74-106) H 03/09/24 22:31 Magnesium 1.8 mg/dL (1.6-2.4) 03/09/24 22:31 Home Medications: Amlodipine [Norvasc*] 10 mg PO DAILY 03/10/24 Aspirin [Aspirin EC 81 MG] 81 mg PO DAILY #30 tab 03/10/24 Atorvastatin Calcium [Lipitor] 40 mg PO BEDTIME #30 tab 03/10/24 Losartan Potassium 100 mg PO DAILY 03/10/24 Sertraline [Zoloft*] 25 mg PO DAILY 03/10/24 New Medications: Aspirin [Aspirin EC 81 MG] 81 mg PO DAILY #30 tab Atorvastatin Calcium [Lipitor] 40 mg PO BEDTIME #30 tab Diet: AHA Activity: Ad domonique Followup: NONE,NONE [Primary Care Provider] - 1-2 Weeks Time spent managing pt's care (in minutes): 28
--- NOTE | 2024-03-10 20:28 | OP ---
Date of Procedure: 03/10/2024 Surgeon: AKHIL VALDEZ Procedure Performed: Selective coronary angiogram. Indication: Unstable angina. Access: Right radial artery, 6-Lithuanian, closed with TR band. Complications: None. Bleeding: Less than 50 mL. Total Sedation Time: 45 minutes. Used Versed. Description Of Procedure: After risks, benefits, and alternatives were explained, the patient agreed to procedure and signed informed consent. The patient was brought into cardiac catheterization [facility], prepped and draped in usual sterile fashion. Then, I accessed right radial artery using pedi atric micropuncture kit, placed 6-Lithuanian slender sheath and took a 6-Lithuanian JL3.5 catheter into the a ortic root, engaged left main, took standard views and then exchanged for 6-Lithuanian JR4 catheter, enga ged the RCA, took standard views. Removed the catheter and the sheath, placed TR band with good hemo stasis. Findings: 1.Left main: Very large and normal. 2.LAD: Very large vessel with luminal irregularities. Normal diagonal branches. 3.Left circumflex: Very large with luminal irregularities. 4.RCA: Large and dominant with luminal irregularities. Conclusion: No significant coronary artery disease, very large arteries with some mild luminal irreg ularities. Recommendation: Medical management. SR/MODL Voice ID: [id number] Report ID: [id number]
[2024-03-10] MEDS ORDERED: ATORVASTATIN 40 MG TAB PO SCH (21:00)
== END 2024-03-10 19:45 | disposition home or self-care (01) ==
LOC: ER 21:32 → ERHOLD 03-10 02:42 → 4TH 03-10 08:40
PROVIDERS: ADMIT Family Medicine; ATTEND Internal Medicine
PROC: B2111ZZ Fluoroscopy of Multiple Coronary Arteries using Low Osmolar Contrast (ICD-10-PCS; principal; 2024-03-10)
DX: R07.9 Chest pain, unspecified (principal); R20.0 Anesthesia of skin; I10 Essential (primary) hypertension; E11.65 Type 2 diabetes mellitus with hyperglycemia; E78.5 Hyperlipidemia, unspecified; F41.9 Anxiety disorder, unspecified; E66.01 Morbid (severe) obesity due to excess calories; Z68.42 Body mass index [BMI] 45.0-49.9, adult; Z82.49 Family history of ischemic heart disease and other diseases of the circulatory system
CPT/HCPCS: 93005; 85025; 81001; 80048; 36415; 83735; 85610; 82947 ×4; 84484 ×3; 83880; 80307; 70450; 71045; 93454; 76937; 96374; 99285; C1893; Q9967; J1644 ×3; J2003; J2250; J7040; 99152; 99153; J0461; J3010